=== PATIENT | female | born 1950 | race Caucasian/White ===

== ENCOUNTER 2018-01-22 10:24 | Emergency (ER) | payer OTHER ==
[2018-01-22] MEDS ORDERED: VANCOMYCIN 1 GM/250 ML BAG ONE (10:46)
[2018-01-22] MEDS ORDERED: NA CHLORIDE 0.9% 2,000 ML ONE (10:47)
[2018-01-22] MEDS ORDERED: FENTANYL CITR 100 MCG/2 ML ONE (10:56)
[2018-01-22] MEDS ORDERED: ONDANSETRON 4 MG/2 ML VIAL ONE (10:56)
[2018-01-22] MEDS ORDERED: PIPER/TAZO/NS 3.375gm 3.375 GM/100 ML BAG IV ONE (11:00)
[2018-01-22 11:10] LABS: Absolute Lymphocytes (CBC) 2.2 K/uL (0.7-4.9); Absolute Monocytes 1.3 K/uL (0.1-1.3); Absolute Neutrophil 24.8 K/uL (1.8-8.0); Basophils % 0.3 % (0-1.3); Hematocrit 25.9 % (36.0-45.0); Lymphocytes % 7.8 % (15.3-44.8); MCH 24.6 pg (27.0-35.0); MCV 77.7 fL (80-100); MPV 7.7 fL (7.6-11.3); Monocytes % 4.7 % (3.3-12.3); RBC Red Blood Cell Count 3.33 M/uL (3.86-4.86)
[2018-01-22 11:14] LABS: Protime INR 1.44
[2018-01-22 11:35] LABS: ALT/SGPT 9 U/L (12-78); AST/SGOT 24 U/L (15-37); Albumin 1.6 g/dL (3.4-5.0); Alkaline Phosphatase 85 U/L (45-117); BUN Blood Urea Nitrogen 12 mg/dL (7-18); Bicarbonate 22 mmol/L (21-32); Bilirubin Direct 0.2 mg/dL (0-0.2); Bilirubin Total 0.5 mg/dL (0.2-1.0); CKMB Creatine Kinase MB < 1.0 ng/mL (0.3-3.6); Creatine Phosphokinase 15 U/L (26-192); Glucose Level 147 mg/dL (74-106); Lipase 51 U/L (73-393); Potassium 3.9 mmol/L (3.5-5.1); Sodium Level 136 mmol/L (136-145)
[2018-01-22 12:13] LABS: Blood Morphology Comment NOT SEEN (NOT SEEN); Platelet Estimate ADEQ
--- NOTE | 2018-01-22 13:31 | RAD REPORT ---
EXAM DESCRIPTION: CT - Chest Abdomen Pelvis W Cont - 01/22/2018 12:49 pm CLINICAL HISTORY: Right breast mass. Abdominal pain COMPARISON: None TECHNIQUE: Computed axial tomography of the chest, abdomen and pelvis was obtained. 100 cc Isovue-30 0 was administered intravenously. Oral contrast was not requested. This limits evaluation of bowel. All CT scans are performed using dose optimization technique as appropriate and may include automated exposure control or mA/KV adjustment according to patient size. FINDINGS: A 27 centimeter ulcerated right breast mass is present. The mass extends to the chest wall . Several nodules are present within the right lung. The largest measures 13 millimeters within the ri ght lower lobe. Couple of tiny nodules are present within the left lung. No mediastinal or hilar lymphadenopathy is seen. A pleural effusion is not present. A pericardial effusion is not seen. The ascending thoracic aorta measures 3.5 centimeters. Aeration of the liver is present. The spleen, pancreas, adrenals and kidneys appear unremarkable. There is no evidence of diverticulitis. No omental/mesenteric nodules are seen. The gallbladder is contracted. 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 21 millimeter low-density structure within the region the common hepatic duct may represent a choledochal cyst. A nonemergent MRCP may be helpful
--- NOTE | 2018-01-22 16:46 | ER ---
Nurse's Notes [facility] Name: Jocelyn Murphy Age: 67 yrs Sex: Female : 1950 Arrival Date: 01/22/2018 Time: 10:19 Bed 7 Private MD: Diagnosis: Other sepsis;Cellulitis of chest wall-and Right Breast;Localized swelling, mass and lump of skin and subcutaneous tissue-Right Breast and Chest Wall Presentation: 01/22 10:19 Presenting complaint: Patient states: mass to R breast x 2 years. Pt has not had medical care due to lack of insurance. Mass has bled intermittently for months, but patient reports the bleeding has been easily controlled. Pt was unable to control bleeding so she called EMS. On EMS arrival, bleeding was controlled. Transition of care: patient was not received from another setting of care. Onset of symptoms is unknown. Risk Assessment: Do you want to hurt yourself or someone else? Patient reports no desire to harm self or others. Initial Sepsis Screen: Does the patient meet any 2 criteria? RR > 20 per min. Systolic BP < 90 mmHg. HR > 90 bpm. Does the patient have a suspected source of infection? Yes: Skin breakdown/wound. Care prior to arrival: Medication(s) given: Normal saline infusion, 500 mL, zofran 4 mg, IV initiated. 20 GA, in the right antecubital area, Glucose check: 237 BP 103/57. 10:19 Method Of Arrival: EMS: [facility] 10:19 Acuity: WANDER 2 ss Historical: - Allergies: 10:24 No Known Allergies; ss - Home Meds: 10:24 None [Active]; ss - PMHx: 10:24 None; ss - PSHx: 10:24 partial hysterectomy; Appendectomy; ss - Immunization history:: Adult Immunizations not up to date. - Social history:: Smoking status: Patient/guardian denies using tobacco. - Ebola Screening: : Patient denies exposure to infectious person Patient denies travel to an Ebola-affected area in the 21 days before illness onset. Screenin:00 Abuse screen: Denies threats or abuse. Denies injuries from another. Nutritional sg screening: No deficits noted. Tuberculosis screening: No symptoms or risk factors identified. Never had TB. Fall Risk None identified. Assessment: 10:15 General: Appears uncomfortable, Behavior is cooperative, appropriate for age, anxious. jl7 Pain: Complains of pain in anterior aspect of right upper chest Pain currently is 10 out of 10 on a pain scale. Neuro: Level of Consciousness is awake, alert, obeys commands, Oriented to person, place, time, situation. Cardiovascular: Heart tones present Patient's skin is warm and dry. Respiratory: Airway is patent Respiratory effort is even, unlabored, Respiratory pattern is regular, symmetrical. GI: Reports nausea, Patient currently denies diarrhea, vomiting. : No signs and/or symptoms were reported regarding the genitourinary system. EENT: No signs and/or symptoms were reported regarding the EENT system. Derm: Skin is dry, Skin is pale, Skin temperature is warm Volleyball size mass noted to anterior aspect of right upper chest wall draining serious-sanguinous fluid. Musculoskeletal: No signs and/or symptoms reported regarding the musculoskeletal system. 11:00 Reassessment: Patient and/or family updated on plan of care and expected duration. Pain jl7 level reassessed. Patient is alert, oriented x 3, equal unlabored respirations, skin warm/dry/pink. 12:05 Reassessment: assisted pt to bedside commode. jl7 13:00 Reassessment: Patient and/or family updated on plan of care and expected duration. Pain jl7 level reassessed. Patient is alert, oriented x 3, equal unlabored respirations, skin warm/dry/pink. 14:00 Reassessment: Patient and/or family updated on plan of care and expected duration. Pain jl7 level reassessed. Patient is alert, oriented x 3, equal unlabored respirations, skin warm/dry/pink. 14:45 Reassessment: Assisted pt to bedside commode. jl7 16:00 Reassessment: Patient and/or family updated on plan of care and expected duration. Pain jl7 level reassessed. Patient is alert, oriented x 3, equal unlabored respirations, skin warm/dry/pink. 17:00 Reassessment: Pt requesting to eat, food tray brought to pt. jl7 18:00 Reassessment: Repacked and redressed wound. jl7 Vital Signs: 10:24 BP 86 / 49; Pulse 125; Resp 22; Temp 98.4(O); Pulse Ox 100% ; Pain 5/10; ss 11:00 BP 114 / 49; Pulse 112 MON; Resp 17 S; Pulse Ox 98% on R/A; Pain 3/10; sg 11:29 Weight 61.23 kg (R); sg 12:00 BP 120 / 39; Pulse 110; Resp 16; Pulse Ox 100% ; jl7 13:04 BP 98 / 42; Pulse 109; Resp 16; Pulse Ox 100% ; jl7 14:22 BP 98 / 46; Pulse 107; Resp 18; Pulse Ox 99% ; jl7 15:00 BP 106 / 34; Pulse 109; Resp 16; Pulse Ox 99% ; jl7 15:30 BP 105 / 36; Pulse 105; Resp 16; Pulse Ox 100% ; jl7 16:00 BP 108 / 37; Pulse 108; Resp 16; Pulse Ox 100% ; jl7 16:37 BP 106 / 32; Pulse 105; Resp 16 S; Pulse Ox 98% on R/A; jl7 17:00 BP 109 / 38; Pulse 113; Resp 18; Pulse Ox 98% ; jl7 17:30 BP 95 / 57; Pulse 115; Resp 16; Pulse Ox 100% ; jl7 18:00 BP 67 / 35; Pulse 118; Resp 16; Pulse Ox 100% ; jl7 18:20 BP 97 / 48; Pulse 120; Resp 14; Pulse Ox 100% ; jl7 18:30 BP 114 / 48; Pulse 118; Resp 16 S; Pulse Ox 100% on R/A; jl7 11:00 Sinus tachycardia ED Course: 10:19 Patient arrived in ED. ss 10:20 Patient has correct armband on for positive identification. Placed in gown. Bed in low jl7 position. Call light in reach. Side rails up X2. quality assurance monitor chassis on. Pulse ox on. NIBP on. 10:22 Triage completed. ss 10:24 Arm band placed on right wrist. ss 10:26 Will Burden PA is PHCP. cp 10:26 Ramesh Feliciano MD is Attending Physician. cp 10:30 Initial lab(s) drawn, by me, sent to lab. Inserted saline lock: 20 gauge in left jl7 antecubital area, using aseptic technique. Blood collected. 10:30 Maintain EMS IV. Dressing intact. Good blood return noted. Site clean \T\ dry. Gauge \T\ jl 7 site: 20 right AC. 10:36 Note: DROPPED CT DRINK OFF. sw 11:19 Wound care: located on anterior aspect of right upper chest, diaphragm and right breast sg was cleaned with with NS, dressed with Kerlix, XEROFORM Gauze x2, bulky dressing x1 Patient tolerated well. 11:30 Ramona Crews, RN is Primary Nurse. jl7 12:29 Patient moved to CA. sw 12:44 CT completed. Patient tolerated procedure well. Patient moved to CA via stretcher. sj Patient moved back from CA. 13:24 Assisted to bedside commode. sg 13:54 Sponge bath and cleaned up new gown and linen.. ag 16:29 initiated transfer with Vianney at the [facility]. eb 16:[address] Dasilva from [facility] for patient transfer consulation. eb 17:46 connected another solder making laborer from [facility] for patient transfer consultation. eb 17:50 Administrative approval given by La Mcknight. Dr Wisdom has accepted the patient in eb transfer. Pt to go to [address] [place] [address] Bed 9. Report to be called to the transfer Center at [phone]. 18:57 No provider procedures requiring assistance completed. Patient transferred, IV remains jl7 in place. intact, No redness/swelling at site. Administered Medications: 10:30 Drug: NS 0.9% (30 ml/kg) 30 ml/kg Route: IV; Rate: bolus; Site: right antecubital; jl7 11:05 Drug: fentaNYL (PF) 25 mcg Route: IVP; Site: right antecubital; sg 11:30 Follow up: Response: No adverse reaction; Pain is decreased jl7 11:05 Drug: Zofran 4 mg Route: IVP; Site: right antecubital; sg 11:30 Follow up: Response: No adverse reaction; Nausea is decreased jl7 11:10 Drug: vancoMYCIN 1 grams Route: IVPB; Infused Over: 2 hrs; Site: right antecubital; sg 11:45 Drug: Zosyn 3.375 grams Route: IVPB; Infused Over: 60 mins; Site: right antecubital; jl7 11:53 Drug: NS 0.9% 1000 ml Route: IV; Rate: 100 ml/hr; Site: right antecubital; jl7 17:56 CANCELLED (Duplicate Order): NS 0.9% 1000 ml IV at 1 bolus Per protocol; 1000 mL bolus 18:20 Drug: NS 0.9% 1000 ml Route: IV; Rate: 1 bolus; Site: left antecubital; jl7 Outcome: 16:46 ER care complete, transfer ordered by . cp 18:57 Transferred by ground EMS to [facility], Transfer form completed. jl7 X-rays sent w/ patient. 18:57 Condition: stable 18:57 Discharge instructions given to patient, Instructed on the need for transfer, Demonstrated understanding of instructions. 19:02 Patient left the ED. jl7 Addendum: 01/25/2018 07:15 Addendum: Culture Results: Positive wound culture. Phone call Attempt #1 Culture report s s faxed over to [facility] MARIANA Cheney RN. Signatures: Yin Gastelum, RN RN Jose Flores RN RN sg Jones, Susan sj Smirch, Shelby, RN RN Emily Ross Shannon sw Page, Corey, PA PA cp Leal, Jahala, RN RN jl7 Carissa Metzger Corrections: (The following items were deleted from the chart) 01/22 11:30 11:26 Yin Gastelum, RN is Primary Nurse. elaine henry 14:02 13:54 Shower given. Linen changed. Sponge bath and cleaned up new gown and linen., ag ag
--- NOTE | 2018-01-22 16:46 | EDPHYS ---
Physician Documentation [facility] Name: Jocelyn Murphy Age: 67 yrs Sex: Female : 1950 Arrival Date: 01/22/2018 Time: 10:19 Bed 7 Private MD: ED Physician Ramesh Feliciano HPI: 01/22 10:49 This 67 yrs old Female presents to ER via EMS with complaints of bleeding cp from R breast-Mass. 10:50 mass right upper chest. Description: draining, erythematous, swollen, tense. Onset: The cp symptoms/episode began/occurred last year. 10:50 Associated signs and symptoms: Pertinent positives: discharge, drainage, bleeding, cp Pertinent negatives: fever. Historical: - Allergies: 10:24 No Known Allergies; ss - Home Meds: 10:24 None [Active]; ss - PMHx: 10:24 None; ss - PSHx: 10:24 partial hysterectomy; Appendectomy; ss - Immunization history:: Adult Immunizations not up to date. - Social history:: Smoking status: Patient/guardian denies using tobacco. - Ebola Screening: : Patient denies exposure to infectious person Patient denies travel to an Ebola-affected area in the 21 days before illness onset. ROS: 10:53 Eyes: Negative for injury, pain, redness, and discharge. cp 10:53 Constitutional: Negative for body aches, chills, fever, poor PO intake. 10:53 ENT: Negative for drainage from ear(s), ear pain, sore throat, difficulty swallowing, difficulty handling secretions. 10:53 Cardiovascular: Negative for edema, palpitations. 10:53 Respiratory: Negative for cough, shortness of breath, wheezing. 10:53 Abdomen/GI: Negative for abdominal pain, vomiting, diarrhea, constipation, black/tarry stool, rectal bleeding. 10:53 Skin: Positive for erythema, ulceration, of the mass upper right chest, drainage. 10:53 Neuro: Negative for altered mental status, headache. 10:53 All other systems are negative. Exam: 10:58 Head/Face: Normocephalic, atraumatic. cp 10:58 Constitutional: The patient appears in no acute distress, alert, awake, non-diaphoretic, well developed, well nourished. 10:58 Eyes: Periorbital structures: appear normal, Conjunctiva: normal, no exudate, no cp injection, Sclera: no appreciated abnormality, Lids and lashes: appear normal, bilaterally. 10:58 ENT: External ear(s): are unremarkable, Nose: is normal, Mouth: Lips: moist, Posterior pharynx: is normal, airway is patent, no erythema, no exudate, Voice: is normal. 10:58 Neck: External neck: is normal, ROM/movement: is normal, is supple, without pain, no range of motions limitations, no meningismus, no nuchal rigidity. 10:58 Chest/axilla: Inspection: large ulcerated mass right upper chest wall with areas of purulent drainage and mild bleeding, Palpation: crepitus, is not appreciated, Breasts: nipple discharge, is not appreciated, firm bilaterally. 10:58 Cardiovascular: Rate: tachycardic, Rhythm: regular, Edema: is not appreciated, JVD: is not appreciated. 10:58 Respiratory: the patient does not display signs of respiratory distress, Respirations: normal, no use of accessory muscles, no retractions, no splinting, no tachypnea, labored breathing, is not present, Breath sounds: are clear throughout, no decreased breath sounds, no stridor, no wheezing. 10:58 Abdomen/GI: Inspection: abdomen appears normal, Bowel sounds: active, all quadrants, Palpation: abdomen is soft and non-tender, in all quadrants, rebound tenderness, is not appreciated, voluntary guarding, is not appreciated, involuntary guarding, is not appreciated. 10:58 Back: pain, is absent, ROM is normal. 10:58 Neuro: Orientation: to person, place \T\ time. Mentation: is normal, Motor: moves all fours, strength is normal, Sensation: no obvious gross deficits. Vital Signs: 10:24 BP 86 / 49; Pulse 125; Resp 22; Temp 98.4(O); Pulse Ox 100% ; Pain 5/10; ss 11:00 BP 114 / 49; Pulse 112 MON; Resp 17 S; Pulse Ox 98% on R/A; Pain 3/10; sg 11:29 Weight 61.23 kg (R); sg 12:00 BP 120 / 39; Pulse 110; Resp 16; Pulse Ox 100% ; jl7 13:04 BP 98 / 42; Pulse 109; Resp 16; Pulse Ox 100% ; jl7 14:22 BP 98 / 46; Pulse 107; Resp 18; Pulse Ox 99% ; jl7 15:00 BP 106 / 34; Pulse 109; Resp 16; Pulse Ox 99% ; jl7 15:30 BP 105 / 36; Pulse 105; Resp 16; Pulse Ox 100% ; jl7 16:00 BP 108 / 37; Pulse 108; Resp 16; Pulse Ox 100% ; jl7 16:37 BP 106 / 32; Pulse 105; Resp 16 S; Pulse Ox 98% on R/A; jl7 17:00 BP 109 / 38; Pulse 113; Resp 18; Pulse Ox 98% ; jl7 17:30 BP 95 / 57; Pulse 115; Resp 16; Pulse Ox 100% ; jl7 18:00 BP 67 / 35; Pulse 118; Resp 16; Pulse Ox 100% ; jl7 18:20 BP 97 / 48; Pulse 120; Resp 14; Pulse Ox 100% ; jl7 18:30 BP 114 / 48; Pulse 118; Resp 16 S; Pulse Ox 100% on R/A; jl7 11:00 Sinus tachycardia sg MDM: 10:27 Patient medically screened. 14:00 Data reviewed: vital signs, nurses notes, lab test result(s), radiologic studies, CT cp scan. 14:00 Counseling: I had a detailed discussion with the patient and/or guardian regarding: the cp historical points, exam findings, and any diagnostic results supporting the discharge/admit diagnosis, lab results, radiology results. Response to treatment: the patient's symptoms have mildly improved after treatment. 01/22 10:31 Order name: Type And Screen; Complete Time: 11:45 01/22 10:31 Order name: Wound Culture cp 01/22 10:31 Order name: Basic Metabolic Panel; Complete Time: 11:45 01/22 11:46 Interpretation: Normal except: GLUC 147. 01/22 10:31 Order name: Blood Culture Adult (2) cp 01/22 10:31 Order name: C-Reactive Protein; Complete Time: 11:45 01/22 10:31 Order name: CBC with Diff; Complete Time: 12:30 01/22 11:35 Interpretation: Abnormal: WBC 28.5; RBC 3.33; HGB 8.2; HCT 25.9; MCV 77.7; MCH 24.6; cp MCHC 31.7; PLT 505; RDW 16.4; GREGORIA% 87.2; LYM% 7.8; NEUT A 24.8. 08 10:31 Order name: Ckmb; Complete Time: 11:45 cp 01/22 10:31 Order name: CPK; Complete Time: 11:45 cp 01/22 10:31 Order name: Lactate; Complete Time: 11:45 cp 01/22 11:46 Interpretation: Abnormal: LAC 6.0. cp 01/22 10:31 Order name: LFT's; Complete Time: 11:45 cp 01/22 10:31 Order name: Lipase; Complete Time: 11:45 cp 01/22 10:31 Order name: Procalcitonin; Complete Time: 12:30 cp 01/22 12:31 Interpretation: Abnormal: Procalcitonin 0.71. cp 01/22 10:31 Order name: Protime (+inr); Complete Time: 11:35 cp 01/22 10:31 Order name: Ptt, Activated; Complete Time: 11:35 cp 01/22 10:31 Order name: Sed Rate; Complete Time: 12:30 cp 01/22 10:31 Order name: Troponin (emerg Dept Use Only); Complete Time: 11:35 cp 01/22 11:36 Interpretation: Within normal limits: TROPED < 0.02. cp 01/22 10:31 Order name: CT Chest, Abdomen, Pelvis - W/Contrast cp 01/22 11:37 Order name: ABO/RH no charge; Complete Time: 11:45 EDMS 01/22 12:13 Order name: Manual Differential; Complete Time: 12:30 EDMS 01/22 13:32 Order name: CT; Complete Time: 13:52 EDMS 01/22 14:46 Order name: Lactate Sepsis 2 HR Follow-up; Complete Time: 16:28 EDMS 01/22 10:31 Order name: Accucheck; Complete Time: 11:45 cp 01/22 10:31 Order name: Cardiac monitoring; Complete Time: 11:52 cp 01/22 10:31 Order name: EKG - Nurse/Tech; Complete Time: 11:46 cp 01/22 10:31 Order name: IV Saline Lock - Large Bore; Complete Time: 11:46 cp 01/22 10:31 Order name: Labs collected and sent; Complete Time: 11:46 cp 01/22 10:31 Order name: O2 Per Protocol; Complete Time: 11:45 cp 01/22 10:31 Order name: O2 Sat Monitoring; Complete Time: 12:12 cp Administered Medications: 10:30 Drug: NS 0.9% (30 ml/kg) 30 ml/kg Route: IV; Rate: bolus; Site: right antecubital; jl7 11:05 Drug: fentaNYL (PF) 25 mcg Route: IVP; Site: right antecubital; sg 11:30 Follow up: Response: No adverse reaction; Pain is decreased jl7 11:05 Drug: Zofran 4 mg Route: IVP; Site: right antecubital; sg 11:30 Follow up: Response: No adverse reaction; Nausea is decreased jl7 11:10 Drug: vancoMYCIN 1 grams Route: IVPB; Infused Over: 2 hrs; Site: right antecubital; sg 11:45 Drug: Zosyn 3.375 grams Route: IVPB; Infused Over: 60 mins; Site: right antecubital; jl7 11:53 Drug: NS 0.9% 1000 ml Route: IV; Rate: 100 ml/hr; Site: right antecubital; jl7 17:56 CANCELLED (Duplicate Order): NS 0.9% 1000 ml IV at 1 bolus Per protocol; 1000 mL bolus sg 18:20 Drug: NS 0.9% 1000 ml Route: IV; Rate: 1 bolus; Site: left antecubital; jl7 Disposition: 14:14 Co-signature as Attending Physician, Ramesh Feliciano MD Consulted with Dr. Escalera, states rn will come and eval patient in ER, will likely be able to stay at this hospital. Vitals have improved. . Disposition: 01/22/18 16:46 Transfer ordered to [facility]. Diagnosis are Other sepsis, Cellulitis of chest wall - and Right Breast, Localized swelling, mass and lump of skin and subcutaneous tissue - Right Breast and Chest Wall. - Reason for transfer: Higher level of care. - Accepting physician is DR Wisdom. - Condition is Stable. - Problem is new. - Symptoms have improved. Signatures: Dispatcher [employer] EDMS Jose Gomez RN RN sg Nieto, Roman, MD MD rn Smirch, Shelby, RN RN ss Page, Corey, PA PA Ramona Canchola RN RN jl7 Corrections: (The following items were deleted from the chart) 17:49 16:46 01/22/2018 16:46 Transfer ordered to [facility]. Diagnosis is cp Other sepsis; Cellulitis of chest wall - and Right Breast; Localized swelling, mass and lump of skin and subcutaneous tissue - Right Breast and Chest Wall. Reason for transfer: Higher level of care. Accepting physician is DR Quick. Condition is Stable. Problem is new. Symptoms have improved. cp 17:56 17:56 NS 0.9% 1000 ml IV at 1 bolus Per protocol; 1000 mL bolus ordered. sg sg 19:02 17:49 01/22/2018 16:46 Transfer ordered to [facility]. Diagnosis is jl7 Other sepsis; Cellulitis of chest wall - and Right Breast; Localized swelling, mass and lump of skin and subcutaneous tissue - Right Breast and Chest Wall. Reason for transfer: Higher level of care. Accepting physician is DR Wisdom. Condition is Stable. Problem is new. Symptoms have improved. cp
[2018-01-22] MEDS ORDERED: NA CHLORIDE 0.9% 1,000 ML ONE (18:21)
== END 2018-01-22 19:02 | disposition short-term general hospital (02) ==
LOC: ER 10:24
DX: A41.89 Other specified sepsis (principal); N61.0 Mastitis without abscess; L03.313 Cellulitis of chest wall
CPT/HCPCS: 36415; 71260; 74177; 80048; 80076; 82550; 82553; 83605 ×2; 83690; 84145; 84484; 85025; 85610; 85652; 85730; 86140; 86850; 86900; 86901; 87040 ×2; 87070; 87205; J2405; J2543; J3010; J3370; J7030 ×2; Q9967; 87077; 87186; 96374; 96375; 99285